=== PATIENT | male | born 1975 | race American Indian/Alaskan Native ===

== ENCOUNTER 2020-06-28 09:54 | Emergency (ER) | payer SELFPAY ==
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
--- NOTE | 2020-06-28 10:35 | XRay Report ---
CHEST 1 VIEW 06/28/2020 9:23 AM INDICATION / CLINICAL INFORMATION: cough. COMPARISON: None available. FINDINGS: SUPPORT DEVICES: None. HEART / MEDIASTINUM: No significant abnormality. LUNGS / PLEURA: No significant pulmonary or pleural abnormality. No pneumothorax. ADDITIONAL FINDINGS: No significant additional findings. IMPRESSION: No acute cardiopulmonary abnormality. Signer Name: Barry Brian MD Signed: 06/28/2020 10:30 AM Workstation Name: [id number]
[2020-06-28 10:49] LABS: Hemoglobin 13.5 gm/dl (11.8-15.2); Mean Corpuscular HGB Conc 36 % (32-34); Mean Corpuscular Volume 86 fl (84-94); Platelet Count 141 K/mm3 (140-440); Red Blood Count 4.43 M/mm3 (3.65-5.03); Red Cell Distribution Width 14.1 % (13.2-15.2)
--- NOTE | 2020-06-28 11:09 | Cat Scan Report ---
CT HEAD WITHOUT CONTRAST INDICATION / CLINICAL INFORMATION: Altered mental status. TECHNIQUE: All CT scans at this location are performed using CT dose reduction for ALARA by means of automated e xposure control. COMPARISON: None available. FINDINGS: HEMORRHAGE: No evidence of intracranial hemorrhage or extra-axial fluid collection. EXTRA-AXIAL SPACES: Cortical sulci, sylvian fissures and basilar cisterns have an unremarkable appear ance. VENTRICULAR SYSTEM: The ventricular system is of normal size and configuration. CEREBRAL PARENCHYMA: No areas of abnormal brain parenchymal attenuation are identified. There is no i ndication of recent infarction. MIDLINE SHIFT OR HERNIATION: There is no mass effect. CEREBELLUM / BRAINSTEM: Brainstem and cerebellum have an unremarkable appearance. MIDLINE STRUCTURES:No abnormalities of the pituitary gland or pineal region are identified. INTRACRANIAL VESSELS:No abnormalities are identified on this noncontrast head CT. ORBITS: visualized portions of the orbits have an unremarkable appearance. SOFT TISSUES of HEAD: No significant abnormality. CALVARIUM: Evaluation of bone windows reveals no abnormalities. PARANASAL SINUSES / MASTOID AIR CELLS: Paranasal sinuses are free from inflammatory mucosal disease. Mastoid air cells are normally pneumatized. IMPRESSION: 1. Normal head CT without contrast. Signer Name: Brent Washington MD Signed: 06/28/2020 11:04 AM Workstation Name: [id number]
[2020-06-28 11:16] LABS: Alanine Aminotransferase 44 units/L (7-56); Albumin 3.8 g/dL (3.9-5); BUN/Creatinine Ratio 13; Blood Urea Nitrogen 12 mg/dL (9-20); Calcium 8.9 mg/dL (8.4-10.2); Hemolysis Index 10
[2020-06-28 11:29] LABS: Basophils % (Manual) 0 % (0.0-1.8); Total Cells Counted 100
[2020-06-28 11:30] LABS: Large Platelets Few; Platelet Estimate Consistent w Auto; RBC Morphology Normal
[2020-06-28 11:56] LABS: Bilirubin,Urine SM (Negative); Blood,Urine NEG (Negative); Color,Urine Amber (Yellow); Hyaline Casts,Urine 1 /LPF; Mucus,Urine 2+ /HPF
[2020-06-28 11:59] LABS: Amphetamine Screen,Urine Negative; Benzodiazepines Screen,Urine Negative; Cannabinoid Screen,Urine Negative; Cocaine Screen,Urine Negative; Methadone Screen,Urine Negative; Opiate Screen,Urine Negative
[2020-06-28 12:04] LABS: Ictotest,Urine Negative (Negative)
[2020-06-28] MEDS ORDERED: NITROFURANTOIN MONOHYD/M-CRYST 100 MG CAP PO ONE (13:34)
[2020-06-28 13:38] VITALS: BP 122/70
== END 2020-06-28 13:57 | disposition home or self-care (01) ==
LOC: ED 09:54
DX: N39.0 Urinary tract infection, site not specified (principal); R79.89 Other specified abnormal findings of blood chemistry; Z79.899 Other long term (current) drug therapy
CPT/HCPCS: 36415; 70450; 71045; 80053; 80307; 80320; 81001; 82140; 82962; 84443; 84484; 85007; 85025; 87086; 93005; G0480

== ENCOUNTER 2021-12-25 18:54 | Inpatient (IN) | payer SELFPAY ==
--- NOTE | 2021-12-25 22:08 | Emergency Department Report ---
ED Psych HPI - General Chief Complaint: Alcohol Stated Complaint: INTOXICATION Source: patient Mode of arrival: Ambulatory - History of Present Illness Initial Comments: Patient is a nulliparous 17-year-old -[place] female with no past medical history presents to the ED with complaint of acute onset persistent intermittent nausea and vomiting and diarrhea for the last 24 hours after eating some foods. Patient states that other family members have had similar symptoms but their symptoms have not been as severe as hers. Patient states that she has not been able to keep anything down in the last 12 hours because of intractable nausea and vomiting. Patient states that in the last 6 hours she has had more than 6 episodes of nausea and vomiting. Patient denies dizziness, syncope, chest pain or shortness of breath, nausea and vomiting or diarrhea, abdominal pain, fever, chills, cough or headache. MD Complaint: suicidal ideation, feels depressed, other (Alcohol intoxication; suicidal ideation; visual and auditory hallucinations) -: Gradual, week(s) (1) Associated Psychiatric Symptoms: depression, suicidal ideation, auditory hallucinations, visual hallucinations, delusions, other (Alcohol intoxication yes) History of same: Yes Quality: constant Improves With: none Worsens With: none Context: recent alcohol abuse, not taking psychiatric Associated Symptoms: denies other symptoms, other (Alcohol intoxication). denies: confusion, headache, shortness of breath, nausea, vomiting, syncope, insomnia Treatments Prior to Arrival: none If Self Harm: admits thoughts of (By hanging himself at home), has plan (Hanging himself at home), other (Chronic alcohol abuse) Details of Plan: Hanging himself at home with a rope - Related Data Previous Rx's Medication Instructions Recorded Last Taken Type Nitrofurantoin [place]/M-Cryst 100 mg PO Q12HR #14 capsule 06/28/20 Unknown Rx [Macrobid CAP] Allergies Allergy/AdvReac Type Severity Reaction Status Date / Time No Known Allergies Allergy Verified 12/25/21 19:40 ED Review of Systems ROS: Stated complaint: INTOXICATION Other details as noted in HPI Constitutional: denies: chills, fever Eyes: denies: eye pain, eye discharge, vision change ENT: denies: ear pain, throat pain Respiratory: denies: cough, shortness of breath, wheezing Cardiovascular: denies: chest pain, palpitations Endocrine: no symptoms reported Gastrointestinal: denies: abdominal pain, nausea, vomiting, diarrhea Genitourinary: denies: urgency, dysuria Musculoskeletal: denies: back pain, joint swelling, arthralgia Skin: denies: rash, lesions Neurological: denies: headache, weakness, paresthesias Psychiatric: anxiety, depression, auditory hallucinations, visual hallucinations, suicidal thoughts (With a plan to hang himself at home), other (Chronic alcohol abuse) Hematological/Lymphatic: denies: easy bleeding, easy bruising ED Past Medical Hx - Past Medical History Previous Medical History?: Yes Hx Hypertension: Yes Hx Psychiatric Treatment: Yes (Chronic alcohol abuse; paranoid schizophrenia; anxiety and depression) - Surgical History Past Surgical History?: No - Medications Home Medications: Home Medications Medication Instructions Recorded Confirmed Last Taken Type Nitrofurantoin [place]/M-Cryst 100 mg PO Q12HR #14 capsule 06/28/20 Unknown Rx [Macrobid CAP] ED Physical Exam - General Limitations: No Limitations General appearance: alert, in no apparent distress, appears intoxicated (On alcohol) - Head Head exam: Present: atraumatic, normocephalic, normal inspection - Eye Eye exam: Present: normal appearance, PERRL, EOMI Pupils: Present: normal accommodation - ENT ENT exam: Present: normal exam, normal orophraynx, mucous membranes moist, TM's normal bilaterally, normal external ear exam - Neck Neck exam: Present: normal inspection, full ROM. Absent: tenderness - Respiratory Respiratory exam: Present: normal lung sounds bilaterally. Absent: respiratory distress, wheezes, rales, rhonchi, chest wall tenderness, accessory muscle use, prolonged expiratory - Cardiovascular Cardiovascular Exam: Present: regular rate, normal rhythm, normal heart sounds. Absent: systolic murmur, diastolic murmur, rubs, gallop - GI/Abdominal GI/Abdominal exam: Present: soft, normal bowel sounds. Absent: tenderness, guarding, rebound, hyperactive bowel sounds, hypoactive bowel sounds, organomegaly - Extremities Exam Extremities exam: Present: normal inspection, full ROM, normal capillary refill. Absent: tenderness - Back Exam Back exam: Present: normal inspection, full ROM. Absent: tenderness, CVA tenderness (R), CVA tenderness (L), muscle spasm, paraspinal tenderness, vertebral tenderness - Neurological Exam Neurological exam: Present: alert, oriented X3, CN II-XII intact, normal gait, reflexes normal - Psychiatric Psychiatric exam: Present: depressed, anxious, flat affect, suicidal ideation (With a plan to hang himself at home), other (Chronic alcohol abuse, and appears intoxicated on alcohol) - Skin Skin exam: Present: warm, dry, intact, normal color. Absent: rash ED Course Vital Signs 12/25/21 19:34 Temperature 98.5 F Pulse Rate 97 H Respiratory 14 Rate Blood Pressure 121/72 [Right] O2 Sat by Pulse 96 Oximetry ED Medical Decision Making - Medical Decision Making This is a nulliparous 17-year-old -L[place]ian female with no past medical history presents to the ED with complaint of acute onset persistent intermittent nausea and vomiting and diarrhea for the last 24 hours after eating some foods. Patient states that other family members have had similar symptoms but their symptoms have not been as severe as hers. Patient states that she has not been able to keep anything down in the last 12 hours because of intractable nausea and vomiting. Patient states that in the last 6 hours she has had more than 6 episodes of nausea and vomiting. Basic labs were ordered and the patient transferred to mental health section of the emergency department for further evaluation by the ED physician. - Differential Diagnosis alcohol abuse; SI; hallucinations; depression Critical care attestation.: If time is entered above; I have spent that time in minutes in the direct care of this critically ill patient, excluding procedure time. ED Disposition Clinical Impression: Chronic alcohol abuse, Depression with suicidal ideation, Hallucinations due to alcohol Disposition: HOME / SELF CARE / HOMELESS Condition: Stable
--- NOTE | 2021-12-25 23:05 | Cat Scan Report ---
CT head without contrast INDICATION : Altered mental status. TECHNIQUE: Axial imaging performed from the skull apex through the skull base without the use of con trast. All CT examinations performed at this facility utilize dose modulation, iterative reconstruct ion or weight-based dosing, when appropriate, to reduce radiation dose to as low as reasonably achiev able. Exam is limited secondary to motion artifact from altered mental status. COMPARISON: 06/28/2020 FINDINGS: No acute intracranial hemorrhage or parenchymal abnormality is identified within the limit s of the exam as motion artifact definitely limits the exam.. Ventricles are normal in size and jamal ear symmetric. Soft tissues including the orbits appear normal. No acute osseous abnormality. S inuses and mastoid air cells are clear. IMPRESSION: No acute abnormality within the limits of the exam.. Signer Name: Alvin Don MD Signed: 12/25/2021 11:01 PM Workstation Name: [employer]
--- NOTE | 2021-12-25 23:25 | XRay Report ---
Single view INDICATION: Somnolence dyspnea IMPRESSION: Mild bilateral interstitial edema. Signer Name: Alvin Don MD Signed: 12/25/2021 11:20 PM Workstation Name: [employer]
[2021-12-25 23:27] LABS: Eosinophils # (Auto) 0.2 K/mm3 (0.0-0.4); Eosinophils % (Auto) 4.5 % (0.0-4.3); Hematocrit 42.8 % (35.5-45.6); Hemoglobin 14.6 gm/dl (11.8-15.2); Lymphocytes # (Auto) 1.9 K/mm3 (1.2-5.4); Lymphocytes % (Auto) 39.1 % (13.4-35.0); Mean Corpuscular HGB Conc 34 % (32-34); Mean Corpuscular Volume 87 fl (84-94); Monocytes # (Auto) 0.5 K/mm3 (0.0-0.8); Platelet Count 216 K/mm3 (140-440); Red Blood Count 4.91 M/mm3 (3.65-5.03); Red Cell Distribution Width 12.9 % (13.2-15.2)
[2021-12-25 23:47] LABS: Alanine Aminotransferase 16 units/L (7-56); Albumin 3.2 g/dL (3.9-5); BUN/Creatinine Ratio 7; Blood Urea Nitrogen 7 mg/dL (9-20); Calcium 8.3 mg/dL (8.4-10.2); Hemolysis Index 11
--- NOTE | 2021-12-26 04:14 | Emergency Department Report ---
ED General Adult HPI - General Chief complaint: Alcohol Stated complaint: INTOXICATION Time Seen by Provider: 12/25/21 22:25 Source: patient Mode of arrival: Ambulatory Limitations: No Limitations - History of Present Illness Initial comments: patient presents with complaints of feeling more tired and sleepy than usual. Denies CP, SOB per se, palpitations, diaphoresis, back pain, abd pain, pain in his extremities. Severity scale (0 -10): 0 - Related Data Previous Rx's Medication Instructions Recorded Last Taken Type Nitrofurantoin [place]/M-Cryst 100 mg PO Q12HR #14 capsule 06/28/20 Unknown Rx [Macrobid CAP] Allergies Allergy/AdvReac Type Severity Reaction Status Date / Time No Known Allergies Allergy Verified 12/25/21 19:40 ED Review of Systems ROS: Stated complaint: INTOXICATION Other details as noted in HPI Comment: All other systems reviewed and negative Constitutional: denies: chills, fever ED Past Medical Hx - Past Medical History Previous Medical History?: Yes Hx Hypertension: Yes Hx Psychiatric Treatment: Yes (Chronic alcohol abuse; paranoid schizophrenia; anxiety and depression) - Surgical History Past Surgical History?: No - Medications Home Medications: Home Medications Medication Instructions Recorded Confirmed Last Taken Type Nitrofurantoin [place]/M-Cryst 100 mg PO Q12HR #14 capsule 06/28/20 Unknown Rx [Macrobid CAP] ED Physical Exam - General General appearance: alert, in no apparent distress - Head Head exam: Present: atraumatic, normocephalic - Eye Eye exam: Present: PERRL, EOMI - ENT ENT exam: Present: mucous membranes moist, other (airway patent) - Neck Neck exam: Present: other (supple; no JVD) - Respiratory Respiratory exam: Present: other (good air entry, nml I:E, CTAB, no use of MYRIAM) - Cardiovascular Cardiovascular Exam: Present: regular rate. Absent: rubs, gallop - GI/Abdominal GI/Abdominal exam: Present: soft, normal bowel sounds. Absent: distended, tenderness - Extremities Exam Extremities exam: Present: normal inspection, full ROM - Back Exam Back exam: Present: full ROM. Absent: tenderness - Neurological Exam Neurological exam: Present: alert, oriented X3, CN II-XII intact. Absent: motor sensory deficit - Skin Skin exam: Present: warm, normal color ED Course Vital Signs 12/25/21 12/26/21 12/26/21 19:34 06:00 07:52 Temperature 98.5 F 98.6 F Pulse Rate 97 H 82 86 Respiratory 14 18 Rate Blood Pressure 133/78 Blood Pressure 121/72 [Right] O2 Sat by Pulse 96 100 98 Oximetry 12/26/21 08:00 Temperature Pulse Rate 99 H Respiratory Rate Blood Pressure 113/72 Blood Pressure [Right] O2 Sat by Pulse 100 Oximetry ED Medical Decision Making - Lab Data Result diagrams: 12/25/21 22:56 12/25/21 22:56 Laboratory Tests 12/25/21 12/25/21 12/25/21 22:56 22:56 22:56 WBC 4.9 RBC 4.91 Hgb 14.6 Hct 42.8 MCV 87 MCH 30 MCHC 34 RDW 12.9 L Plt Count 216 Lymph % (Auto) 39.1 H [place] % (Auto) 11.0 H Eos % (Auto) 4.5 H Baso % (Auto) 1.0 Lymph # (Auto) 1.9 [place] # (Auto) 0.5 Eos # (Auto) 0.2 Baso # (Auto) 0.0 Seg Neutrophils % 44.4 Seg Neutrophils # 2.2 Sodium 140 Potassium 4.1 Chloride 105.5 Carbon Dioxide 22 Anion Gap 17 BUN 7 L Creatinine 1.0 Estimated GFR > 60 BUN/Creatinine Ratio 7 Glucose 85 Calcium 8.3 L Total Bilirubin 0.80 AST 42 H ALT 16 Alkaline Phosphatase 105 Troponin T Total Protein 7.1 Albumin 3.2 L Albumin/Globulin Ratio 0.8 Salicylates < 0.3 L Acetaminophen Plasma/Serum Alcohol 12/25/21 12/25/21 12/25/21 22:56 22:56 22:56 WBC RBC Hgb Hct MCV MCH MCHC RDW Plt Count Lymph % (Auto) [place] % (Auto) Eos % (Auto) Baso % (Auto) Lymph # (Auto) [place] # (Auto) Eos # (Auto) Baso # (Auto) Seg Neutrophils % Seg Neutrophils # Sodium Potassium Chloride Carbon Dioxide Anion Gap BUN Creatinine Estimated GFR BUN/Creatinine Ratio Glucose Calcium Total Bilirubin AST ALT Alkaline Phosphatase Troponin T < 0.010 Total Protein Albumin Albumin/Globulin Ratio Salicylates Acetaminophen 5.0 L Plasma/Serum Alcohol 0.09 H CXR: pulm edema EKG: HR 90, SR, nml ME, narrow QRS, no significant ST changes in contiguous leads - Medical Decision Making Diff dz: likely 2/2 CHF exacerbation superimposed on alcohol intoxication. Received furosemide 40 mg IV x 1. Critical care attestation.: If time is entered above; I have spent that time in minutes in the direct care of this critically ill patient, excluding procedure time. ED Disposition Clinical Impression: Alcohol intoxication, Pulmonary edema Disposition: ADMITTED INPATIENT Is pt being admited?: Yes Does the pt Need Aspirin: No Condition: Stable Time of Disposition: 06:10 (Patient admitted to Dr. Jara. Sign out was given by me to the admitting physician )
[2021-12-26] MEDS ORDERED: FUROSEMIDE 40 MG/4 ML INJ IV ONE (06:21)
[2021-12-26] MEDS ORDERED: ALBUTEROL 2.5 MG/3 ML NEBU IH PRN (06:33)
[2021-12-26] MEDS ORDERED: ONDANSETRON 4 MG/2 ML INJ IV PRN (06:33)
[2021-12-26] MEDS ORDERED: ACETAMINOPHEN 325 MG TAB PO PRN (06:33)
[2021-12-26] MEDS ORDERED: MORPHINE 2 MG/1 ML INJ IV PRN (06:33)
[2021-12-26] MEDS ORDERED: HYDROmorphone 1 MG/1 ML INJ IV PRN (06:33)
--- NOTE | 2021-12-26 06:40 | History and Physical Report ---
History of Present Illness Date of examination: 12/26/21 Date of admission: 12/26/21 Chief complaint: Alcohol intoxication History of present illness: 46 years old male with history of hypertension and alcohol abuse was brought to the hospital because of feeling more tired and sleepy than usual. Denies CP, SOB per se, palpitations, diaphoresis, back pain, abd pain, pain in his extremities. In the emergency room patient is found to have acute CHF exacerbation. Chest x- ray shows mild bilateral interstitial edema. Also patient alcohol level is 0.09.'s were going to admit the patient we will put the patient on CHF pathway and CIWA protocol Past History Past Medical History: hypertension, other (Paranoid schizophreniaYes (Chronic alcohol abuse; paranoid schizophrenia; anxiety and depression)) Past Surgical History: No surgical history Social history: smoking, alcohol abuse Family history: hypertension Medications and Allergies Allergies Allergy/AdvReac Type Severity Reaction Status Date / Time No Known Allergies Allergy Verified 12/25/21 19:40 Home Medications Medication Instructions Recorded Confirmed Last Taken Type Nitrofurantoin [place]/M-Cryst 100 mg PO Q12HR #14 capsule 06/28/20 Unknown Rx [Macrobid CAP] Review of Systems All systems: negative Constitutional: fatigue, weakness, malaise, lethargy Exam - Constitutional Vitals: Temp Pulse Resp BP Pulse Ox 98.5 F 97 H 14 121/72 96 12/25/21 19:34 12/25/21 19:34 12/25/21 19:34 12/25/21 19:34 12/25/21 19:34 General appearance: Present: no acute distress, well-nourished - EENT Eyes: Present: PERRL ENT: hearing intact, clear oral mucosa - Neck Neck: Present: supple, normal ROM - Respiratory Respiratory effort: normal Respiratory: bilateral: rales - Cardiovascular Heart Sounds: Present: S1 & S2. Absent: rub, click - Extremities Extremities: pulses symmetrical, No edema Peripheral Pulses: within normal limits - Abdominal General gastrointestinal: Present: soft, non-tender, non-distended, normal bowel sounds Male genitourinary: Present: normal - Integumentary Integumentary: Present: clear, warm, dry - Musculoskeletal Musculoskeletal: gait normal, strength equal bilaterally - Psychiatric Psychiatric: appropriate mood/affect, intact judgment & insight - Neurologic Neurologic: CNII-XII intact, moves all extremities HEART Score - HEART Score Troponin: Troponin T < 0.010 ng/mL (0.00-0.029) 12/25/21 22:56 Results - Labs CBC & Chem 7: 12/25/21 22:56 12/25/21 22:56 Labs: Laboratory Last Values WBC 4.9 K/mm3 (4.5-11.0) 12/25/21 22:56 RBC 4.91 M/mm3 (3.65-5.03) 12/25/21 22:56 Hgb 14.6 gm/dl (11.8-15.2) 12/25/21 22:56 Hct 42.8 % (35.5-45.6) 12/25/21 22:56 MCV 87 fl (84-94) 12/25/21 22:56 MCH 30 pg (28-32) 12/25/21 22:56 MCHC 34 % (32-34) 12/25/21 22:56 RDW 12.9 % (13.2-15.2) L 12/25/21 22:56 Plt Count 216 K/mm3 (140-440) 12/25/21 22:56 Lymph % (Auto) 39.1 % (13.4-35.0) H 12/25/21 22:56 [place] % (Auto) 11.0 % (0.0-7.3) H 12/25/21 22:56 Eos % (Auto) 4.5 % (0.0-4.3) H 12/25/21 22:56 Baso % (Auto) 1.0 % (0.0-1.8) 12/25/21 22:56 Lymph # (Auto) 1.9 K/mm3 (1.2-5.4) 12/25/21 22:56 [place] # (Auto) 0.5 K/mm3 (0.0-0.8) 12/25/21 22:56 Eos # (Auto) 0.2 K/mm3 (0.0-0.4) 12/25/21 22:56 Baso # (Auto) 0.0 K/mm3 (0.0-0.1) 12/25/21 22:56 Seg Neutrophils % 44.4 % (40.0-70.0) 04/09/22 22:56 Seg Neutrophils # 2.2 K/mm3 (1.8-7.7) 12/25/21 22:56 Sodium 140 mmol/L (137-145) 12/25/21 22:56 Potassium 4.1 mmol/L (3.6-5.0) 12/25/21 22:56 Chloride 105.5 mmol/L (98-107) 12/25/21 22:56 Carbon Dioxide 22 mmol/L (22-30) 12/25/21 22:56 Anion Gap 17 mmol/L 12/25/21 22:56 BUN 7 mg/dL (9-20) L 12/25/21 22:56 Creatinine 1.0 mg/dL (0.8-1.3) 12/25/21 22:56 Estimated GFR > 60 ml/min 12/25/21 22:56 BUN/Creatinine Ratio 7 % 12/25/21 22:56 Glucose 85 mg/dL (75-100) 12/25/21 22:56 Calcium 8.3 mg/dL (8.4-10.2) L 12/25/21 22:56 Total Bilirubin 0.80 mg/dL (0.1-1.2) 12/25/21 22:56 AST 42 units/L (5-40) H 12/25/21 22:56 ALT 16 units/L (7-56) 12/25/21 22:56 Alkaline Phosphatase 105 units/L (35-129) 12/25/21 22:56 Troponin T < 0.010 ng/mL (0.00-0.029) 12/25/21 22:56 Total Protein 7.1 g/dL (6.3-8.2) 12/25/21 22:56 Albumin 3.2 g/dL (3.9-5) L 12/25/21 22:56 Albumin/Globulin Ratio 0.8 % 12/25/21 22:56 Salicylates < 0.3 mg/dL (2.8-20.0) L 12/25/21 22:56 Acetaminophen 5.0 ug/mL (10.0-30.0) L 12/25/21 22:56 Plasma/Serum Alcohol 0.09 % (0-0.07) H 12/25/21 22:56 - Imaging and Cardiology Chest x-ray: report reviewed Assessment and Plan VTE prophylaxis?: Chemical Plan of care discussed with patient/family: Yes - Patient Problems (1) Pulmonary edema Current Visit: Yes Status: Acute Plan to address problem: Admit the patient to the medical floor. Fluid restriction. Maintain input output. Lasix 40 mg IV daily. Daily weight. Echocardiogram. Consult cardiology if needed (2) Alcohol intoxication Current Visit: Yes Status: Acute Plan to address problem: We counseled the patient regarding quit drinking we will put the patient on CIWA protocol also put the patient on thiamine folic acid and banana bag (3) Hypertension Current Visit: Yes Status: Acute Plan to address problem: Hydralazine 10 mg IV every 6 hours as needed. We continue the home medication (4) Depression Current Visit: Yes Status: Acute Plan to address problem: We will continue the home medication outpatient follow-up with psych (5) DVT prophylaxis Current Visit: Yes Status: Acute Plan to address problem: Heparin 5000 units subcu every 12 hours for DVT prophylaxis. Pepcid 20 mg p.o. twice daily for GI prophylaxis. Patient is a full code
[2021-12-26] MEDS ORDERED: LORazepam 2 MG/ML VIAL IV PRN (06:41)
[2021-12-26] MEDS ORDERED: THIAMINE 100 MG, FOLIC ACID 1 MG, MULTIPLE VITAMIN INJ, ADULT 10 ML in SODIUM CHLORIDE ... IV ONE (06:42)
[2021-12-26 09:12] LABS: Bilirubin,Urine NEG (Negative); Blood,Urine SM (Negative); Color,Urine Yellow (Yellow); Hyaline Casts,Urine 3 /LPF; Mucus,Urine FEW /HPF; Protein,Urine <15 mg/dL mg/dL (Negative)
[2021-12-26 09:19] LABS: Amphetamine Screen,Urine Negative; Benzodiazepines Screen,Urine Negative; Cannabinoid Screen,Urine Negative; Cocaine Screen,Urine Negative; Methadone Screen,Urine Negative; Opiate Screen,Urine Negative
[2021-12-26] MEDS: FUROSEMIDE 40 MG/4 ML INJ IV SCH (11:52)
[2021-12-26] MEDS: HEPARIN 5,000 UNIT/1 ML VIAL SUB-Q SCH ×2 (11:52→21:21)
[2021-12-26] MEDS: FAMOTIDINE 20 MG TAB PO SCH ×2 (11:53→21:21)
[2021-12-26] MEDS: IPRATROPIUM/ALBUTEROL SULFATE 3 ML AMPUL.NEB IH SCH ×3 (12:12→20:21)
--- NOTE | 2021-12-26 16:25 | Electrocardiograph Report ---
[facility] Test Date: 2021-12-26 Test Time: 06:20:54 Pat Name: GENARO WELLS Department: Room: A472 Gender: M [employer]: REY : 1975 Requested By: CAN ESPANA Order Number: [id number] Reading MD: Anuarg Langley Measurements Intervals Vanduser Rate: 92 P: 57 VT: 158 QRS: 7 QRSD: 84 T: 49 QT: 381 QTc: 472 Interpretive Statements Sinus rhythm No previous ECG available for comparison Electronically Signed On 12-26-2021 16:24:51 EDT by Anurag Langley
--- NOTE | 2021-12-26 19:10 | Progress Note ---
Assessment and Plan Assessment and plan: VTE prophylaxis?: Chemical Plan of care discussed with patient/family: Yes --Acute pulmonary edema Current Visit: Yes Status: Acute Secondary to fluid retention Gentle diuresis, oxygen titrate O2 sats to more than 90% Nebulizers if needed --Acute toxic metabolic encephalopathy; Current Visit: Yes Status: Acute Due to alcohol intoxication Neurochecks, treat the underlying cause Supportive care, fall precautions --Acute alcohol intoxication Current Visit: Yes Status: Acute Thiamine, folic acid, multivitamins, IV fluids Supportive care --History of chronic alcohol use; Current Visit: Yes Status: Chronic We counseled the patient and strongly advised to quit alcohol intake Also advised alcohol rehabilitation upon discharge, advised to follow [facility] support group --Acute gastritis; Current Visit: Yes Status: Acute Pepcid 20 mg twice a day Supportive care -- Hypertension Current Visit: Yes Status: Acute Hydralazine 10 mg IV every 6 hours as needed. We continue the home medication -- Depression Current Visit: Yes Status: Acute Resume home psych medications Consult psych for recommendations --Moderate protein calorie malnutrition; Current Visit: Yes Status: Chronic Due to alcohol intoxication and chronic alcohol use Nutrition supplements, supportive care, nutrition consult if needed --Hypoalbuminemia ; albumin 3.2 Current Visit: Yes Status: Chronic Due to underlying disease process and malnutrition nutrition supplements. Supportive care Nutrition consult if needed --Chronic tobacco use; Current Visit: Yes Status: Chronic Smoking cessation counseling done Risks and consequences of tobacco use explained to the patient Nicotine patch as needed --Obesity; BMI 36.6 Current Visit: Yes Status: Chronic Advised diet modification, exercise as tolerated, weight reduction When you are medically stable --full CODE STATUS -- DVT prophylaxis Current Visit: Yes Status: Acute Heparin 5000 units subcu every 12 hours We will closely monitor the patient and adjust the management as needed Plan of care reviewed with the patient and his nurse Prolonged care time 35 minutes Advance care plan;+30 min Patient's condition discussed with the patient, tests and reports explained to the patient Diagnosis informed the patient, treatment plan explained to the patient, counseling done Strongly advised to quit alcohol intake, discussed alcohol rehabilitation option at discharge Also advised to go to [facility] support group, patient patient had many questions answered all of them Verbalized understanding, agreed with the plan, additional time spent 30 minutes History Interval history: I have seen and examined the patient at the bedside Patient's chart and medications reviewed Patient with alcohol intoxication Complains of mild dizziness Hospitalist Physical - Constitutional Vitals: Temp Pulse Resp BP Pulse Ox 98.3 F 84 18 98/52 96 12/26/21 14:49 12/26/21 14:49 12/26/21 06:00 12/26/21 14:49 12/26/21 14:49 General appearance: Present: mild distress, well-nourished, obese - EENT Eyes: Present: PERRL, EOM intact - Neck Neck: Present: supple, normal ROM - Respiratory Respiratory effort: normal Respiratory: bilateral: diminished, negative: rales, rhonchi, wheezing - Cardiovascular Rhythm: regular Heart Sounds: Present: S1 & S2 - Extremities Extremities: no ischemia, No edema - Abdominal General gastrointestinal: soft, non-tender, non-distended, normal bowel sounds - Integumentary Integumentary: Present: clear, warm - Psychiatric Psychiatric: appropriate mood/affect, cooperative - Neurologic Neurologic: CNII-XII intact, moves all extremities HEART Score - HEART Score Troponin: Troponin T < 0.010 ng/mL (0.00-0.029) 12/25/21 22:56 Results - Labs CBC & Chem 7: 12/25/21 22:56 12/25/21 22:56 Labs: Laboratory Last Values WBC 4.9 K/mm3 (4.5-11.0) 12/25/21 22:56 RBC 4.91 M/mm3 (3.65-5.03) 12/25/21 22:56 Hgb 14.6 gm/dl (11.8-15.2) 12/25/21 22:56 Hct 42.8 % (35.5-45.6) 12/25/21 22:56 MCV 87 fl (84-94) 12/25/21 22:56 MCH 30 pg (28-32) 12/25/21 22:56 MCHC 34 % (32-34) 12/25/21 22:56 RDW 12.9 % (13.2-15.2) L 12/25/21 22:56 Plt Count 216 K/mm3 (140-440) 12/25/21 22:56 Lymph % (Auto) 39.1 % (13.4-35.0) H 12/25/21 22:56 [place] % (Auto) 11.0 % (0.0-7.3) H 12/25/21 22:56 Eos % (Auto) 4.5 % (0.0-4.3) H 12/25/21 22:56 Baso % (Auto) 1.0 % (0.0-1.8) 12/25/21 22:56 Lymph # (Auto) 1.9 K/mm3 (1.2-5.4) 12/25/21 22:56 [place] # (Auto) 0.5 K/mm3 (0.0-0.8) 12/25/21 22:56 Eos # (Auto) 0.2 K/mm3 (0.0-0.4) 12/25/21 22:56 Baso # (Auto) 0.0 K/mm3 (0.0-0.1) 12/25/21 22:56 Seg Neutrophils % 44.4 % (40.0-70.0) 12/25/21 22:56 Seg Neutrophils # 2.2 K/mm3 (1.8-7.7) 12/25/21 22:56 Sodium 140 mmol/L (137-145) 12/25/21 22:56 Potassium 4.1 mmol/L (3.6-5.0) 12/25/21 22:56 Chloride 105.5 mmol/L (98-107) 12/25/21 22:56 Carbon Dioxide 22 mmol/L (22-30) 12/25/21 22:56 Anion Gap 17 mmol/L 12/25/21 22:56 BUN 7 mg/dL (9-20) L 12/25/21 22:56 Creatinine 1.0 mg/dL (0.8-1.3) 12/25/21 22:56 Estimated GFR > 60 ml/min 12/25/21 22:56 BUN/Creatinine Ratio 7 % 12/25/21 22:56 Glucose 85 mg/dL (75-100) 12/25/21 22:56 Calcium 8.3 mg/dL (8.4-10.2) L 12/25/21 22:56 Phosphorus 4.10 mg/dL (2.5-4.5) 12/26/21 08:24 Magnesium 1.90 mg/dL (1.7-2.3) 12/26/21 08:24 Total Bilirubin 0.80 mg/dL (0.1-1.2) 12/25/21 22:56 AST 42 units/L (5-40) H 12/25/21 22:56 ALT 16 units/L (7-56) 12/25/21 22:56 Alkaline Phosphatase 105 units/L (35-129) 12/25/21 22:56 Troponin T < 0.010 ng/mL (0.00-0.029) 12/25/21 22:56 Total Protein 7.1 g/dL (6.3-8.2) 12/25/21 22:56 Albumin 3.2 g/dL (3.9-5) L 12/25/21 22:56 Albumin/Globulin Ratio 0.8 % 12/25/21 22:56 Urine Color Yellow (Yellow) 12/26/21 08:57 Urine Turbidity Clear (Clear) 12/26/21 08:57 Urine pH 6.0 (5.0-7.0) 12/26/21 08:57 Ur Specific [place] 1.008 (1.003-1.030) 12/26/21 08:57 Urine Protein <15 mg/dl mg/dL (Negative) 12/26/21 08:57 Urine Glucose (UA) Neg mg/dL (Negative) 12/26/21 08:57 Urine Ketones Neg mg/dL (Negative) 12/26/21 08:57 Urine Blood Sm (Negative) 12/26/21 08:57 Urine Nitrite Neg (Negative) 12/26/21 08:57 Urine Bilirubin Neg (Negative) 12/26/21 08:57 Urine Urobilinogen 4.0 mg/dL (<2.0) 12/26/21 08:57 Ur Leukocyte Esterase Tr (Negative) 12/26/21 08:57 Urine WBC (Auto) 3.0 /HPF (0.0-6.0) 12/26/21 08:57 Urine RBC (Auto) 2.0 /HPF (0.0-6.0) 12/26/21 08:57 U Epithel Cells (Auto) 1.0 /HPF (0-13.0) 12/26/21 08:57 Hyaline Casts 3 /LPF 12/26/21 08:57 Urine Mucus Few /HPF 12/26/21 08:57 Salicylates < 0.3 mg/dL (2.8-20.0) L 12/25/21 22:56 Urine Opiates Screen Negative 12/26/21 08:57 Urine Methadone Screen Negative 12/26/21 08:57 Acetaminophen 5.0 ug/mL (10.0-30.0) L 12/25/21 22:56 Ur Barbiturates Screen Negative 12/26/21 08:57 Ur Phencyclidine Scrn Negative 12/26/21 08:57 Ur Amphetamines Screen Negative 12/26/21 08:57 U Benzodiazepines Scrn Negative 12/26/21 08:57 Urine Cocaine Screen Negative 12/26/21 08:57 U Marijuana (THC) Screen Negative 12/26/21 08:57 Drugs of Abuse Note Disclamer 12/26/21 08:57 Plasma/Serum Alcohol 0.09 % (0-0.07) H 12/25/21 22:56 Cortés/IV: Voiding Method Toilet Active Medications - Current Medications Current Medications: Generic Name Dose Route Start Last Admin Trade Name Freq PRN Reason Stop Dose Admin Acetaminophen 650 mg 12/26/21 06:33 Acetaminophen 325 Mg Tab PO Q4H PRN Pain MILD(1-3)/Fever >100.5/HILL Albuterol 2.5 mg 12/26/21 06:33 Albuterol 2.5 Mg/3 Ml Nebu IH Q3HRT PRN Shortness Of Breath Albuterol/Ipratropium 1 ampul 12/26/21 08:00 12/26/21 12:12 Ipratropium/Albuterol Sulfate 3 Ml Ampul.Neb IH Not Given Q6HRT RANDAL Famotidine 20 mg 12/26/21 10:00 12/26/21 11:53 Famotidine 20 Mg Tab PO 20 mg BID RANDAL Administration Furosemide 40 mg 12/26/21 10:00 12/26/21 11:52 Furosemide 40 Mg/4 Ml Inj IV 40 mg QDAY RANDAL Administration Heparin Sodium (Porcine) 5,000 unit 12/26/21 10:00 12/26/21 11:52 Heparin 5,000 Unit/1 Ml Vial SUB-Q 5,000 unit Q12HR RANDAL Administration Hydromorphone HCl 0.5 mg 12/26/21 06:33 Hydromorphone 1 Mg/1 Ml Inj IV Q3H PRN Pain , Severe (7-10) Lorazepam 2 mg 12/26/21 06:41 Lorazepam 2 Mg/Ml Vial IV Q1H PRN CIWA-Ar 8-15 Morphine Sulfate 2 mg 12/26/21 06:33 Morphine 2 Mg/1 Ml Inj IV Q4H PRN Pain, Moderate (4-6) Ondansetron HCl 4 mg 12/26/21 06:33 Ondansetron 4 Mg/2 Ml Inj IV Q8H PRN Nausea And Vomiting Sodium Chloride 10 ml 12/26/21 10:00 12/26/21 11:58 Sodium Chloride 0.9% 10 Ml Flush Syringe IV 10 ml BID RANDAL Administration Sodium Chloride 10 ml 12/26/21 06:33 Sodium Chloride 0.9% 10 Ml Flush Syringe IV PRN PRN LINE FLUSH
[2021-12-27] MEDS: IPRATROPIUM/ALBUTEROL SULFATE 3 ML AMPUL.NEB IH SCH ×4 (02:32→21:07)
[2021-12-27 08:45] LABS: Basophils % (Auto) 0.8 % (0.0-1.8); Eosinophils # (Auto) 0.2 K/mm3 (0.0-0.4); Eosinophils % (Auto) 4.7 % (0.0-4.3); Hematocrit 40.7 % (35.5-45.6); Hemoglobin 13.9 gm/dl (11.8-15.2); Lymphocytes # (Auto) 1.7 K/mm3 (1.2-5.4); Lymphocytes % (Auto) 39.2 % (13.4-35.0); Mean Corpuscular HGB Conc 34 % (32-34); Mean Corpuscular Volume 87 fl (84-94); Monocytes # (Auto) 0.6 K/mm3 (0.0-0.8); Monocytes % (Auto) 14.5 % (0.0-7.3); Platelet Count 189 K/mm3 (140-440); Red Blood Count 4.67 M/mm3 (3.65-5.03); Red Cell Distribution Width 13.4 % (13.2-15.2)
[2021-12-27 08:56] LABS: BUN/Creatinine Ratio 9; Blood Urea Nitrogen 9 mg/dL (9-20); Calcium 8.3 mg/dL (8.4-10.2); Hemolysis Index 10
--- NOTE | 2021-12-27 09:03 | Progress Note ---
Assessment and Plan Assessment and plan: --Acute pulmonary edema Current Visit: Yes Status: Acute Evaluate for CHF Secondary to fluid retention Gentle diuresis, oxygen titrate O2 sats to more than 90% Nebulizers if needed, echo for LV function ejection fraction --Acute toxic metabolic encephalopathy; Current Visit: Yes Status: Acute Due to alcohol intoxication Neurochecks, treat the underlying cause Supportive care, fall precautions --Acute alcohol intoxication Current Visit: Yes Status: Acute Thiamine, folic acid, multivitamins, IV fluids Supportive care, --Alcohol withdrawal symptoms; Current Visit: Yes Status: Acute Patient has tremulousness and mild agitation On CIWA protocol Advised alcohol rehabilitation program Advised to follow-up [facility] alcohol support group Patient verbalized understanding --History of chronic alcohol use; Current Visit: Yes Status: Chronic We counseled the patient and strongly advised to quit alcohol intake Also advised alcohol rehabilitation upon discharge, advised to follow [facility] support group --Acute gastritis; Current Visit: Yes Status: Acute Pepcid 20 mg twice a day Supportive care -- Hypertension Current Visit: Yes Status: Acute Hydralazine 10 mg IV every 6 hours as needed. We continue the home medication -- Depression Current Visit: Yes Status: Acute Resume home psych medications Consult psych for recommendations --Moderate protein calorie malnutrition; Current Visit: Yes Status: Chronic Due to alcohol intoxication and chronic alcohol use Nutrition supplements, supportive care, nutrition consult if needed --Hypoalbuminemia ; albumin 3.2 Current Visit: Yes Status: Chronic Due to underlying disease process and malnutrition nutrition supplements. Supportive care Nutrition consult if needed --Chronic tobacco use; Current Visit: Yes Status: Chronic Smoking cessation counseling done Risks and consequences of tobacco use explained to the patient Nicotine patch as needed --Obesity; BMI 36.6 Current Visit: Yes Status: Chronic Advised diet modification, exercise as tolerated, weight reduction When you are medically stable --full CODE STATUS -- DVT prophylaxis Current Visit: Yes Status: Acute Heparin 5000 units subcu every 12 hours Follow echocardiogram and LV function If normal and patient is stable may be discharged home tomorrow. We will closely monitor the patient and adjust the management as needed Plan of care reviewed with the patient and his nurse Advance care plan;+30 min Patient's condition discussed with the patient, tests and reports explained to the patient Diagnosis informed the patient, treatment plan explained to the patient, counseling done Strongly advised to quit alcohol intake, discussed alcohol rehabilitation option at discharge Also advised to go to [facility] support group, patient patient had many questions answered all of them Verbalized understanding, agreed with the plan, additional time spent 30 minutes 12/27/2021; follow echocardiogram LV function ejection fraction Follow clinically, may discharge home tomorrow if stable History Interval history: I have seen and examined the patient at the bedside Patient's chart and medications reviewed Patient complains of mild shortness of breath Very mild tremulousness noted Vital signs reviewed Hospitalist Physical - Constitutional Vitals: Temp Pulse Resp BP Pulse Ox 98.4 F 85 17 93/49 97 12/27/21 04:01 12/27/21 07:28 12/27/21 07:28 12/27/21 04:01 12/27/21 08:24 General appearance: Present: no acute distress, well-nourished, obese - EENT Eyes: Present: PERRL, EOM intact - Neck Neck: Present: supple, normal ROM - Respiratory Respiratory effort: normal Respiratory: bilateral: diminished, rales, negative: rhonchi, wheezing - Cardiovascular Rhythm: regular Heart Sounds: Present: S1 & S2 - Extremities Extremities: no ischemia, No edema - Abdominal General gastrointestinal: soft, non-tender, non-distended, normal bowel sounds - Integumentary Integumentary: Present: clear, warm - Psychiatric Psychiatric: appropriate mood/affect, cooperative - Neurologic Neurologic: moves all extremities HEART Score - HEART Score Troponin: Troponin T < 0.010 ng/mL (0.00-0.029) 12/25/21 22:56 Results - Labs CBC & Chem 7: 12/27/21 07:35 12/27/21 07:35 Labs: Laboratory Last Values WBC 4.4 K/mm3 (4.5-11.0) L 12/27/21 07:35 RBC 4.67 M/mm3 (3.65-5.03) 12/27/21 07:35 Hgb 13.9 gm/dl (11.8-15.2) 12/27/21 07:35 Hct 40.7 % (35.5-45.6) 12/27/21 07:35 MCV 87 fl (84-94) 12/27/21 07:35 MCH 30 pg (28-32) 12/27/21 07:35 MCHC 34 % (32-34) 12/27/21 07:35 RDW 13.4 % (13.2-15.2) 12/27/21 07:35 Plt Count 189 K/mm3 (140-440) 12/27/21 07:35 Lymph % (Auto) 39.2 % (13.4-35.0) H 12/27/21 07:35 [place] % (Auto) 14.5 % (0.0-7.3) H 12/27/21 07:35 Eos % (Auto) 4.7 % (0.0-4.3) H 12/27/21 07:35 Baso % (Auto) 0.8 % (0.0-1.8) 12/27/21 07:35 Lymph # (Auto) 1.7 K/mm3 (1.2-5.4) 12/27/21 07:35 [place] # (Auto) 0.6 K/mm3 (0.0-0.8) 12/27/21 07:35 Eos # (Auto) 0.2 K/mm3 (0.0-0.4) 12/27/21 07:35 Baso # (Auto) 0.0 K/mm3 (0.0-0.1) 12/27/21 07:35 Seg Neutrophils % 40.8 % (40.0-70.0) 12/27/21 07:35 Seg Neutrophils # 1.8 K/mm3 (1.8-7.7) 12/27/21 07:35 Sodium 141 mmol/L (137-145) 12/27/21 07:35 Potassium 3.6 mmol/L (3.6-5.0) 12/27/21 07:35 Chloride 106.4 mmol/L (98-107) 12/27/21 07:35 Carbon Dioxide 25 mmol/L (22-30) 12/27/21 07:35 Anion Gap 13 mmol/L 12/27/21 07:35 BUN 9 mg/dL (9-20) 12/27/21 07:35 Creatinine 1.0 mg/dL (0.8-1.3) 12/27/21 07:35 Estimated GFR > 60 ml/min 12/27/21 07:35 BUN/Creatinine Ratio 9 % 12/27/21 07:35 Glucose 97 mg/dL (75-100) 12/27/21 07:35 Calcium 8.3 mg/dL (8.4-10.2) L 12/27/21 07:35 Phosphorus 4.10 mg/dL (2.5-4.5) 12/26/21 08:24 Magnesium 1.90 mg/dL (1.7-2.3) 12/26/21 08:24 Total Bilirubin 0.80 mg/dL (0.1-1.2) 12/25/21 22:56 AST 42 units/L (5-40) H 12/25/21 22:56 ALT 16 units/L (7-56) 12/25/21 22:56 Alkaline Phosphatase 105 units/L (35-129) 12/25/21 22:56 Troponin T < 0.010 ng/mL (0.00-0.029) 12/25/21 22:56 Total Protein 7.1 g/dL (6.3-8.2) 12/25/21 22:56 Albumin 3.2 g/dL (3.9-5) L 12/25/21 22:56 Albumin/Globulin Ratio 0.8 % 12/25/21 22:56 Urine Color Yellow (Yellow) 12/26/21 08:57 Urine Turbidity Clear (Clear) 12/26/21 08:57 Urine pH 6.0 (5.0-7.0) 12/26/21 08:57 Ur Specific [place] 1.008 (1.003-1.030) 12/26/21 08:57 Urine Protein <15 mg/dl mg/dL (Negative) 12/26/21 08:57 Urine Glucose (UA) Neg mg/dL (Negative) 12/26/21 08:57 Urine Ketones Neg mg/dL (Negative) 12/26/21 08:57 Urine Blood Sm (Negative) 12/26/21 08:57 Urine Nitrite Neg (Negative) 12/26/21 08:57 Urine Bilirubin Neg (Negative) 12/26/21 08:57 Urine Urobilinogen 4.0 mg/dL (<2.0) 12/26/21 08:57 Ur Leukocyte Esterase Tr (Negative) 12/26/21 08:57 Urine WBC (Auto) 3.0 /HPF (0.0-6.0) 12/26/21 08:57 Urine RBC (Auto) 2.0 /HPF (0.0-6.0) 12/26/21 08:57 U Epithel Cells (Auto) 1.0 /HPF (0-13.0) 12/26/21 08:57 Hyaline Casts 3 /LPF 12/26/21 08:57 Urine Mucus Few /HPF 12/26/21 08:57 Salicylates < 0.3 mg/dL (2.8-20.0) L 12/25/21 22:56 Urine Opiates Screen Negative 12/26/21 08:57 Urine Methadone Screen Negative 12/26/21 08:57 Acetaminophen 5.0 ug/mL (10.0-30.0) L 12/25/21 22:56 Ur Barbiturates Screen Negative 12/26/21 08:57 Ur Phencyclidine Scrn Negative 12/26/21 08:57 Ur Amphetamines Screen Negative 12/26/21 08:57 U Benzodiazepines Scrn Negative 12/26/21 08:57 Urine Cocaine Screen Negative 12/26/21 08:57 U Marijuana (THC) Screen Negative 12/26/21 08:57 Drugs of Abuse Note Disclamer 12/26/21 08:57 Plasma/Serum Alcohol 0.09 % (0-0.07) H 12/25/21 22:56 [place]és/IV: Voiding Method Toilet Active Medications - Current Medications Current Medications: Generic Name Dose Route Start Last Admin Trade Name Freq PRN Reason Stop Dose Admin Acetaminophen 650 mg 12/26/21 06:33 Acetaminophen 325 Mg Tab PO Q4H PRN Pain MILD(1-3)/Fever >100.5/HILL Albuterol 2.5 mg 12/26/21 06:33 Albuterol 2.5 Mg/3 Ml Nebu IH Q3HRT PRN Shortness Of Breath Albuterol/Ipratropium 1 ampul 12/26/21 08:00 12/27/21 08:23 Ipratropium/Albuterol Sulfate 3 Ml Ampul.Neb IH 1 ampul Q6HRT RANDAL Administration Famotidine 20 mg 12/26/21 10:00 12/26/21 21:21 Famotidine 20 Mg Tab PO 20 mg BID RANDAL Administration Furosemide 40 mg 12/26/21 10:00 12/26/21 11:52 Furosemide 40 Mg/4 Ml Inj IV 40 mg QDAY RANDAL Administration Heparin Sodium (Porcine) 5,000 unit 12/26/21 10:00 12/26/21 21:21 Heparin 5,000 Unit/1 Ml Vial SUB-Q 5,000 unit Q12HR RANDAL Administration Hydromorphone HCl 0.5 mg 12/26/21 06:33 Hydromorphone 1 Mg/1 Ml Inj IV Q3H PRN Pain , Severe (7-10) Lorazepam 2 mg 12/26/21 06:41 Lorazepam 2 Mg/Ml Vial IV Q1H PRN CIWA-Ar 8-15 Morphine Sulfate 2 mg 12/26/21 06:33 Morphine 2 Mg/1 Ml Inj IV Q4H PRN Pain, Moderate (4-6) Ondansetron HCl 4 mg 12/26/21 06:33 Ondansetron 4 Mg/2 Ml Inj IV Q8H PRN Nausea And Vomiting Sodium Chloride 10 ml 12/26/21 10:00 12/26/21 21:21 Sodium Chloride 0.9% 10 Ml Flush Syringe IV 10 ml BID RANDAL Administration Sodium Chloride 10 ml 12/26/21 06:33 Sodium Chloride 0.9% 10 Ml Flush Syringe IV PRN PRN LINE FLUSH
[2021-12-27] MEDS: FAMOTIDINE 20 MG TAB PO SCH ×2 (11:25→21:20)
[2021-12-27] MEDS: HEPARIN 5,000 UNIT/1 ML VIAL SUB-Q SCH ×2 (11:25→21:20)
[2021-12-27] MEDS: FUROSEMIDE 40 MG/4 ML INJ IV SCH (11:25)
[2021-12-28] MEDS ORDERED: IPRATROPIUM/ALBUTEROL SULFATE 3 ML AMPUL.NEB IH SCH (08:00)
--- NOTE | 2021-12-28 10:01 | Discharge Summary ---
Providers - Providers Date of Admission: 12/26/21 06:34 Attending physician: ARIEL HARRISON MD Primary care physician: BSA/[facility] COMPLIANCE OFFICER Hospitalization Reason for admission: Shortness of breath Condition: Stable Hospital course: Patient is a 46 years old male with history of hypertension and alcohol abuse was brought to the hospital because of feeling more tired and sleepy than usual. Denies CP, SOB per se, palpitations, diaphoresis, back pain, abd pain, pain in his extremities. In the emergency room patient is found to have acute CHF exacerbation. Chest x- ray shows mild bilateral interstitial edema. Also patient alcohol level is 0.09.'s were going to admit the patient we will put the patient on CHF pathway and CIWA protocol. Today clinically improved, Follow echocardiogram and LV function If normal and patient is stable may be discharged home tomorrow. We will closely monitor the patient and adjust the management as needed Plan of care reviewed with the patient and his nurse Advance care plan;+30 min Patient's condition discussed with the patient, tests and reports explained to the patient Diagnosis informed the patient, treatment plan explained to the patient, counseling done Strongly advised to quit alcohol intake, discussed alcohol rehabilitation option at discharge Also advised to go to [facility] support group, patient patient had many questions answered all of them Verbalized understanding, agreed with the plan, additional time spent 30 minutes 12/27/2021; follow echocardiogram LV function ejection fraction Follow clinically, may discharge home tomorrow if stable 12/28: Spoke to family, reports that the patient is homeless. Case management will assist otherwise patient is clinically stable for discharge had extensive discussion with the patient and he verbalized understanding. I also recommended a psych outpatient follow-up. This is in the request of the mother about the patient dealing with depression. Patient denies any suicidal or homicidal ideation. --Acute pulmonary edema with acute on chronic diastolic dysfunction Current Visit: Yes Status: Acute Evaluate for CHF Secondary to fluid retention Gentle diuresis, oxygen titrate O2 sats to more than 90% Nebulizers if needed, echo for LV function ejection fraction --Acute toxic metabolic encephalopathy; Current Visit: Yes Status: Acute Due to alcohol intoxication Neurochecks, treat the underlying cause Supportive care, fall precautions --Acute alcohol intoxication Current Visit: Yes Status: Acute Thiamine, folic acid, multivitamins, IV fluids Supportive care, --Alcohol withdrawal symptoms; Current Visit: Yes Status: Acute Patient has tremulousness and mild agitation On CIWA protocol Advised alcohol rehabilitation program Advised to follow-up [facility] alcohol support group Patient verbalized understanding --History of chronic alcohol use; Current Visit: Yes Status: Chronic We counseled the patient and strongly advised to quit alcohol intake Also advised alcohol rehabilitation upon discharge, advised to follow [facility] support group --Acute gastritis; Current Visit: Yes Status: Acute Pepcid 20 mg twice a day Supportive care -- Hypertension Current Visit: Yes Status: Acute Hydralazine 10 mg IV every 6 hours as needed. We continue the home medication -- Depression Current Visit: Yes Status: Acute Resume home psych medications Consult psych for recommendations --Moderate protein calorie malnutrition; Current Visit: Yes Status: Chronic Due to alcohol intoxication and chronic alcohol use Nutrition supplements, supportive care, nutrition consult if needed --Hypoalbuminemia ; albumin 3.2 Current Visit: Yes Status: Chronic Due to underlying disease process and malnutrition nutrition supplements. Supportive care Nutrition consult if needed --Chronic tobacco use; Current Visit: Yes Status: Chronic Smoking cessation counseling done Risks and consequences of tobacco use explained to the patient Nicotine patch as needed --Obesity; BMI 36.6 Current Visit: Yes Status: Chronic Advised diet modification, exercise as tolerated, weight reduction When you are medically stable Disposition: 01 HOME / SELF CARE / HOMELESS Final Discharge Diagnosis (Prints w/discharge instructions): -Acute pulmonary edema Time spent for discharge: 35 minutes Core Measure Documentation - Palliative Care Palliative Care/ Comfort Measures: Not Applicable - Core Measures Any of the following diagnoses?: none Exam - Physical Exam Narrative exam: VITAL SIGNS: Reviewed. GENERAL: The patient appears normally developed, ambulating in the room vital signs as documented. HEAD: No signs of head trauma. EYES: Pupils are equal. Extraocular motions intact. EARS: Hearing grossly intact. MOUTH: Oropharynx is normal. NECK: No adenopathy, no JVD. CHEST: Chest with clear breath sounds bilaterally. No wheezes, rales, or rhonchi. CARDIAC: Regular rate and rhythm. S1 and S2, without murmurs, gallops, or rubs. VASCULAR: No Edema. Peripheral pulses normal and equal in all extremities. ABDOMEN: Soft, non tender and non distended. No rebound or guarding, and no masses palpated. Bowel Sounds normal. MUSCULOSKELETAL: Good range of motion of all major joints. Extremities without clubbing, cyanosis or edema. NEUROLOGIC EXAM: Alert and oriented x 3 No focal sensory or strength deficits. Speech normal. Follows commands. PSYCHIATRIC: Mood normal. SKIN: detail exam as documented in skin assessment - Constitutional Vitals: Temp Pulse Resp BP Pulse Ox 98.8 F 75 20 106/61 97 12/28/21 07:54 12/28/21 07:54 12/28/21 07:54 12/28/21 07:54 12/28/21 07:54 Plan Activity: advance as tolerated, fall precautions Diet: low fat Special Instructions: record daily weights, record daily BP diary, other (PLEASE ENROLL IN [facility]) Follow up with: PRIMARY CAREMD [Primary Care Provider] - 3-5 Days [facility] [Provider Group] - 7 Days QUIRINO ESPITIA MD [Staff Physician] - 7 Days Prescriptions: Folic Acid 1 mg PO DAILY #30 tab Multivitamin Tab [Multiple Vitamin TAB (Theragran)] 1 each PO QDAY #30 tablet Thiamine [Vitamin B-1] 100 mg PO QDAY #30 tablet
[2021-12-28] MEDS: FAMOTIDINE 20 MG TAB PO SCH (10:38)
[2021-12-28] MEDS: HEPARIN 5,000 UNIT/1 ML VIAL SUB-Q SCH (10:38)
[2021-12-28 12:09] VITALS: BP 105/61
== END 2021-12-28 13:02 | disposition home or self-care (01) | DRG 291 ==
LOC: ED 18:54 → 4A 12-26 06:34
PROVIDERS: ADMIT Hospitalist; ATTEND Internal Medicine
DX: I11.0 Hypertensive heart disease with heart failure (principal); I50.33 Acute on chronic diastolic (congestive) heart failure; G92.8 Other toxic encephalopathy; J81.0 Acute pulmonary edema; E44.0 Moderate protein-calorie malnutrition; F10.229 Alcohol dependence with intoxication, unspecified; K29.00 Acute gastritis without bleeding; Z68.36 Body mass index [BMI] 36.0-36.9, adult; E88.09 Other disorders of plasma-protein metabolism, not elsewhere classified; K29.70 Gastritis, unspecified, without bleeding; F32.9 Major depressive disorder, single episode, unspecified; E66.9 Obesity, unspecified; F41.9 Anxiety disorder, unspecified; Z82.49 Family history of ischemic heart disease and other diseases of the circulatory system
CPT/HCPCS: 36415; 70450; 71045; 80048; 80053; 80307; 80320; 81001; 83735; 84100; 84484; 85025; 87641; 93005; 93306; 94640; G0378; J3490; Q0162; C8929; G0480; J1644; J1940; J3411; J7030